=== PATIENT | male | born 1980 | race Caucasian/White ===

== ENCOUNTER → 2018-07-31 | Outpatient (CLI) | payer OTHER | LOC: FIMAGING 14:24 | PROVIDERS: ATTEND Surgery | DX: S82.65XA Nondisplaced fracture of lateral malleolus of left fibula, initial encounter for closed fracture (principal) ==

== ENCOUNTER → 2018-08-02 | Outpatient (CLI) | payer OTHER | END | disposition home or self-care (01) | LOC: FIMAGING 14:57 | PROVIDERS: ATTEND Orthopaedic Surgery Foot and Ankle Surgery | DX: S92.112A Displaced fracture of neck of left talus, initial encounter for closed fracture (principal); X58.XXXA Exposure to other specified factors, initial encounter ==